=== PATIENT | female | born 1990 | race Caucasian/White ===

== ENCOUNTER 2019-06-28 17:58 | Emergency (ER) | payer OTHER, SELFPAY ==
--- NOTE | 2019-06-28 18:01 | ED.GENADULT ---
HPI - General Adult General Chief complaint: Upper Respiratory Infection Stated complaint: Cough,UTI Time Seen by Provider: 06/28/19 18:28 Source: patient Mode of arrival: ambulatory Limitations: no limitations History of Present Illness HPI narrative: 28-year-old female patient presents to the [facility] with complaints of urinary symptoms for the past 2 days. Patient states that she has had urgency, frequency, pain with urination odor to her urine. Patient states she has had a little bit of low back pain and some abdominal cramping. Patient states that she did just start her period today. Patient denies any fevers, nausea vomiting or diarrhea. Patient states she is also coming in today with cold symptoms that started approximately 4 days ago. Patient states she has not had any fevers that she is aware of and did not get a flu shot this year. Denies any ear pain. Patient states she has had a little bit of a runny nose, congestion, and a cough. Patient states that her chest does hurt when she coughs but denies any shortness of breath. Denies any chest pain with rest. Patient states she has been taking [id number] sinus medication as well as DayQuil and NyQuil for her symptoms. Patient denies or breast-feeding at this time. Patient states that she did have a miscarriage about 3 months ago. Patient states that she is an active smoker at this time. Related Data Home Medications Medication Instructions Recorded Confirmed buprenorphine HCl 8 mg SUBLINGUAL DAILY 03/14/19 03/14/19 gabapentin [Neurontin] 600 mg PO TID 03/14/19 03/14/19 quetiapine [Seroquel XR] 150 mg PO HS 03/14/19 03/14/19 ziprasidone HCl [Geodon] 80 mg PO BID 03/14/19 03/14/19 bupropion HCl mg PO 06/28/19 Allergies Allergy/AdvReac Type Severity Reaction Status Date / Time No Known Allergies Allergy Unknown Verified 03/18/19 15:47 Review of Systems Review of Systems: Narrative: CONSTITUTIONAL: Denies fever, chills, or sweats. EYES: Denies visual changes, redness, or discharge. ENT: Positive rhinorrhea, congestion, denies sore throat, or otalgia. CARDIOVASCULAR: Positive chest pain with cough, denies palpitations, or edema. RESPIRATORY: Positive cough, denies dyspnea. GASTROINTESTINAL: Denies abdominal pain, nausea, vomiting, or diarrhea. GENITOURINARY: Denies dysuria or hematuria. Positive pain with urination, urgency and frequency SKIN: Denies rash or itching. MUSCULOSKELETAL: Positive low back pain, denies joint pain, or myalgia. NEUROLOGIC: Denies headache, numbness, or weakness. PSYCHIATRIC: Denies anxiety or depression. [facility] Past Medical History Medical History Bipolar 1 disorder Chronic narcotic use Depression Obesity Social History Social History Smoking status: Smoker, status unknown Alcohol intake: never Comments At the time of my signature I agree with nursing past medical history, surgical, social, and family history. There is no relevant family history pertinent to the presenting complaint. Exam Narrative: Exam Narrative: GENERAL: Well-appearing, well-nourished, and in no acute distress. HEAD: Normocephalic, atraumatic. No tenderness noted to frontal and maxillary sinuses on palpation EYES: PERRLA and EOMI. ENT: Nares clear, no rhinorrhea or epistaxis. Mucous membranes moist. Posterior pharynx with no erythema, tonsillar edema, exudates or lesions present. Bilateral TMs are clear with no erythema or foreign bodies in the canal. NECK: Supple. No lymphadenopathy CHEST: Clear to auscultation. No respiratory distress. HEART: Regular rate and rhythm. No murmur heard. Normal peripheral pulses. ABDOMEN: Soft, nontender, nondistended, normal active bowel sounds. No CVA tenderness on percussion. EXTREMITIES: Normal range of motion. No edema. SKIN: Warm, dry, no rash. NEURO: No focal deficits. Alert and oriented x3.
[2019-06-28 18:08] VITALS: BP 140/81; PULSE 107; RESP 18; TEMP 36.7; O2SAT 97
== END 2019-06-28 18:38 | disposition home or self-care (01) ==
PROVIDERS: Emergency Provider Nurse Practitioner Family; PCP Family Medicine Adolescent Medicine
DX: J06.9 Acute upper respiratory infection, unspecified (principal); N30.00 Acute cystitis without hematuria; F31.9 Bipolar disorder, unspecified; E66.9 Obesity, unspecified
CPT/HCPCS: 81003; 87077; 87086; 87088; 87186; 99213; G0463

== ENCOUNTER 2022-11-05 14:58 | Outpatient (CLI) | payer OTHER, SELFPAY ==
[2022-11-05 17:02] LABS: HIV 1/2 Ab P24 Ag Result Negative (Negative)
[2022-11-05 17:04] LABS: Hepatitis B Surface Antigen Negative (Negative)
[2022-11-05 17:24] LABS: Hepatitis C Virus Antibody Reactive (Negative)
[2022-11-08 15:46] LABS: Hepatitis C RNA, Quant PCR <15 IU/mL
== END 2022-11-05 14:59 | disposition home or self-care (01) ==
PROVIDERS: PCP Family Medicine Adolescent Medicine
DX: T14.8XXA Other injury of unspecified body region, initial encounter (principal); W46.1XXA Contact with contaminated hypodermic needle, initial encounter
CPT/HCPCS: 36415; 86703; 86803; 87340; 87522; G0432

== ENCOUNTER 2023-03-13 17:27 | Emergency (ER) | payer OTHER, SELFPAY ==
[2023-03-13 17:50] VITALS: BP 134/88; PULSE 80; RESP 16; TEMP 37.4; O2SAT 99
[2023-03-13 17:54] VITALS: BP 134/88; PULSE 80; RESP 16; TEMP 37.4; O2SAT 99
--- NOTE | 2023-03-13 18:02 | ED.GENADULT ---
HPI - General Adult General Chief complaint: Nausea/Vomiting/Diarrhea Stated complaint: vomiting,sick to stomach Time Seen by Provider: 03/13/23 18:03 Source: patient, RN notes reviewed and old records reviewed Mode of arrival: ambulatory Limitations: no limitations History of Present Illness HPI narrative: 32-year-old female presents to the [facility] with complaints nausea and vomiting since this afternoon. Reports having dental surgery done yesterday. Reports having surgery done at the [facility]. Followed up with the provider this morning. Was not having any symptoms. Has not been able to keep solid foods down. Able to keep liquids Denies any fevers. Is that she has only been taking ibuprofen and acetaminophen Denies any new abdominal pain, chest pain Denies any urinary symptoms Onset (ago): hour(s) Related Data Allergies Allergy/AdvReac Type Severity Reaction Status Date / Time No Known Allergies Allergy Unknown Verified 03/13/23 17:47 Review of Systems Review of Systems: All systems reviewed & are unremarkable except as noted in HPI and below Constitutional: Constitutional: Reports no additional constitutional complaints Eyes: Eyes: Reports no additional eye complaints ENT: Reports system reviewed and no additional complaints, except as documented Cardiovascular: Cardiovascular: Reports no additional cardiovascular complaints, Denies chest pain and Denies dyspnea Respiratory: Respiratory: Reports no additional respiratory complaints, Denies chest congestion, Denies cough and Denies dyspnea Gastrointestinal: Gastrointestinal: Reports as per HPI, Denies abdominal pain, Reports nausea and Reports vomiting Musculoskeletal: Musculoskeletal: Reports no additional musculoskeletal complaints Integumentary/Breasts: Skin/Breast: Reports system reviewed and no additional complaints, except as docu Neurologic: Reports system reviewed and no additional complaints, except as documented Psychiatric: Psychiatric: Reports no additional psychiatric complaints Allergic/Immunologic: Allergic/Immunologic: Reports no additional allergic/immunologic complaints [facility] Past Medical History Medical History (Updated 03/13/23 @ 18:10 by Christine Obando APRN) Bipolar 1 disorder Chronic narcotic use Depression Obesity Surgical History Surgical History H/O foot surgery H/O submucous nasal surgery History of dilation and curettage (02/2019) Missed Ab Family History Family History Father Hypertension Other Depression Social History Social History Smoking status: Current every day smoker Tobacco type: cigarettes Second hand tobacco smoke exposure: Yes Alcohol intake: never Substance use: never Substance use type: does not use Living arrangements: with roommate(s) Occupation/Education: occupation Gender identity (if verbalized by the patient): Female Sexual Orientation (if Verbalized by the Patient): Straight or Heterosexual Spiritual care concerns: No Agree to blood products: Yes Comments At the time of my signature, I reviewed and agree with the nursing past medical, surgical, social, and family history. There is no relevant family history pertinent to the patient complaint. Exam Const: General: cooperative, healthy appearing, comfortable, no acute distress, well developed, alert and well nourished Nutritional Appearance: well nourished Orientation/consciousness: patient oriented x3 Limitations: no limitations HENMT: Head: normal to inspection Ears: hearing grossly normal bilaterally and external ears normal Face/Nose/Sinus: Normal external nose present, Normal nares present, Normal nasal mucous membranes and turbinates present, normal facial exam and face symmetric Face and sinus: normal facial exam and face sy
== END 2023-03-13 18:12 | disposition home or self-care (01) ==
PROVIDERS: Emergency Provider Nurse Practitioner; PCP Family Medicine Adolescent Medicine
DX: R11.2 Nausea with vomiting, unspecified (principal); F17.210 Nicotine dependence, cigarettes, uncomplicated; E66.9 Obesity, unspecified; Z68.39 Body mass index [BMI] 39.0-39.9, adult
CPT/HCPCS: 99213; G0463